=== PATIENT | female | born 1990 | race Caucasian/White ===

== ENCOUNTER 2021-09-22 05:10 | Emergency (ER) | payer OTHER ==
[2021-09-22 05:23] VITALS: BP 112/80; PULSE 89; TEMP 98.1; BMI 25.0
[2021-09-22] MEDS ORDERED: LIDOCAINE 5% TOPICAL PATCH TP ONE (06:21)
[2021-09-22] MEDS ORDERED: ACETAMINOPHEN 500 MG TABLET (FP) PO ONE (06:21)
[2021-09-22] MEDS ORDERED: METHOCARBAMOL 500 MG TABLET ONE (06:40)
[2021-09-22] MEDS ORDERED: LIDOCAINE 5% TOPICAL PATCH ONE (06:41)
[2021-09-22] MEDS ORDERED: ACETAMINOPHEN 325 MG TABLET (FP) ONE (06:41)
[2021-09-22] MEDS ORDERED: METHOCARBAMOL 500 MG TABLET PO ONE (06:41)
[2021-09-22] MEDS: METHOCARBAMOL 500 MG TABLET PO SCH ×2 (07:01→07:02)
[2021-09-22] MEDS ORDERED: LIDOCAINE PATCH REMOVAL MC SCH (22:00)
== END 2021-09-22 07:28 | disposition home or self-care (01) ==
LOC: JER 05:10
DX: Z04.1 Encounter for examination and observation following transport accident (principal); V89.2XXA Person injured in unspecified motor-vehicle accident, traffic, initial encounter; Y92.9 Unspecified place or not applicable
CPT/HCPCS: 99283-25

== ENCOUNTER 2021-09-22 08:02 | Emergency (ER) | payer OTHER ==
[2021-09-22 08:28] VITALS: BMI 27.2
[2021-09-22] MEDS ORDERED: SODIUM CHLORIDE 0.9% 1000 ML INFUS.BAG IV ONE ×2 (08:45→11:53)
[2021-09-22 09:00] LABS: BASO % 0.7 % (0-2.0); EOS % 0.8 % (0-4.5); HEMATOCRIT 36.4 % (32.4-45.2); LYMPH % 45.7 % (8-40); MCH 27.1 pg (25.7-33.7); MEAN PLT VOLUME 9.5 fl (7.5-11.1); MONO % 4.4 % (3.8-10.2); NEUT % 48.4 % (42.8-82.8); PLATELET COUNT 270 10^3/uL (134-434); RBC 4.44 M/mm3 (3.60-5.2); WHITE BLOOD COUNT 7.1 K/mm3 (4.0-10.0)
[2021-09-22 09:12] LABS: ALBUMIN 3.4 g/dl (3.4-5.0); BLOOD UREA NITROGEN 11.3 mg/dL (7-18)
[2021-09-22 09:13] LABS: ACTIVATED PTT 26.1 SECONDS (25.2-36.5); INR 1.03 (0.83-1.09); PROTHROMBIN TIME (PATIENT) 11.8 SEC (9.7-13.0)
[2021-09-22 09:15] LABS: CREATININE 0.5 mg/dL (0.55-1.3)
[2021-09-22 09:17] LABS: BILIRUBIN,TOTAL 0.5 mg/dL (0.2-1); TOT PROT 6.5 g/dl (6.4-8.2)
[2021-09-22 16:17] VITALS: BP 107/74; PULSE 82; TEMP 98
== END 2021-09-22 16:34 | disposition home or self-care (01) ==
LOC: JER 08:02
DX: R55 Syncope and collapse (principal); S80.2 Other superficial injuries of knee
CPT/HCPCS: 36415; 70450-TC; 71045-TC-FY; 72125-TC; 72128-TC; 72131-TC; 72170-TC-FY; 80053; 84703; 85025; 85610; 85730; 86850; 86900; 86901; 93005; 93010; 99285-25